=== PATIENT | male | born 1990 | race African-American/Black ===

== ENCOUNTER 2019-03-02 12:36 | Emergency (ER) | payer MEDICAID ==
[~2019-03-02] VITALS: Ht 177.8 cm; Wt 82.0 kg
[2019-03-02] MEDS ORDERED: DIAZEPAM 5 MG TABLET PO ONE (13:45)
[2019-03-02] MEDS ORDERED: HYDROCODONE/ACETAMINOPHEN 5/325MG TABLET PO ONE (13:45)
[2019-03-02] MEDS ORDERED: KETOROLAC 60MG/2ML VIAL IM ONE (13:45)
[2019-03-02 14:45] VITALS: BP 126/77
== END 2019-03-02 14:46 | disposition home or self-care (01) ==
LOC: ER 12:42
DX: G89.29 Other chronic pain (principal); M54.5 Low back pain; K21.9 Gastro-esophageal reflux disease without esophagitis; F12.10 Cannabis abuse, uncomplicated
CPT/HCPCS: 72100; 96372; 99283; J1885

== ENCOUNTER 2022-10-16 09:36 | Emergency (ER) | payer MEDICAID ==
[~2022-10-16] VITALS: Ht 182.9 cm; Wt 81.6 kg
[2022-10-16 09:40] VITALS: TEMP 98.7; O2SAT 100
[2022-10-16 10:13] LABS: BASOPHILS % 0.7 % (0.0-2.0); HEMATOCRIT. 41.7 % (42.0-52.0); HEMOGLOBIN. 13.9 g/dL (14.0-18.0); LYMPHOCYTES % 15.1 % (20.0-50.0); MEAN CORPUSCULAR HEMOGLOBIN 29.4 pg (28.0-32.0); MEAN CORPUSCULAR HGB CONC 33.4 g/dL (31.0-37.0); MEAN CORPUSCULAR VOLUME 88.1 fL (80.0-94.0); MONOCYTES % 9.8 % (2.0-8.0); NEUTROPHILS % 74.4 % (40.0-76.0); RED BLOOD CELL COUNT 4.73 mill/uL (4.7-6.1); RED CELL DISTRIBUTION WIDTH 13.9 % (11.6-14.6); WHITE BLOOD COUNT 12.8 x1000/uL (4.5-11.0)
[2022-10-16] MEDS ORDERED: MORPHINE SULFATE 4 MG/ML CPJ (NOT FOR IM USE) IV STA (10:14)
[2022-10-16] MEDS ORDERED: ONDANSETRON HCL 4MG/2ML INJ IV STA (10:14)
[2022-10-16] MEDS ORDERED: SODIUM CHLORIDE 0.9% 1,000 ML IV ONE (10:15)
[2022-10-16 10:20] LABS: DIFFERENTIAL COMMENT 1
[2022-10-16 10:25] LABS: CHLORIDE 108 mEq/L (98-107); INDEX HEMOLYSI 1 (1-3); INDEX ICTERIC 1 (1-4); INDEX LIPEMIC 1 (1-3); POTASSIUM 3.8 mEq/L (3.5-5.1); SODIUM 137 mEq/L (136-145)
[2022-10-16 10:35] LABS: ALANINE AMINOTRANSFERASE 41 IU/L (13-61); ALBUMIN 4.7 g/dL (3.4-5.0); ASPARTATE AMINOTRANSFERASE 23 IU/L (15-37); CALCIUM 9.5 mg/dL (8.5-10.1); CARBON DIOXIDE 17 mEq/L (21-32); CREATININE 0.8 mg/dL (0.6-1.3); GLUCOSE 119 mg/dL (70-105); UREA NITROGEN BLOOD 15 mg/dL (7-21)
[2022-10-16 10:47] LABS: PLATELET 333 x1000/uL (130-400)
[2022-10-16] MEDS ORDERED: HALOPERIDOL LACTATE 5MG/ML VIAL IM ONE (12:30)
[2022-10-16] MEDS ORDERED: ONDANSETRON HCL 4MG/2ML INJ IV NR (13:00)
[2022-10-16] MEDS ORDERED: MORPHINE SULFATE 4 MG/ML CPJ (NOT FOR IM USE) IV NR (13:00)
[2022-10-16 13:20] VITALS: BP 111/71; PULSE 52; RESP 16
[2022-10-16] MEDS ORDERED: ONDA4TAB50 MT (15:39)
== END 2022-10-16 15:39 | disposition home or self-care (01) ==
LOC: ER 09:43
DX: R10.9 Unspecified abdominal pain (principal); K21.9 Gastro-esophageal reflux disease without esophagitis; F12.90 Cannabis use, unspecified, uncomplicated
CPT/HCPCS: 80053; 83690; 85025; 36415; 74176; 96361; 96374; 96375; 99285; J1630; J2405; J2270; J7030; Z7610 ×2

== ENCOUNTER 2024-05-16 22:14 | Emergency (ER) | payer MEDICAID, OTHER ==
[~2024-05-16] VITALS: Ht 182.9 cm; Wt 84.0 kg
[~2024-05-16 22:14] MED LIST: ONDA4TAB50 MT
[2024-05-16 22:38] VITALS: O2SAT 98
[2024-05-16 22:57] LABS: BASOPHILS % 1.6 % (0.0-2.0); HEMATOCRIT. 42.9 % (42.0-52.0); HEMOGLOBIN. 14.3 g/dL (14.0-18.0); LYMPHOCYTES % 34.4 % (20.0-50.0); MEAN CORPUSCULAR HEMOGLOBIN 29.6 pg (28.0-32.0); MEAN CORPUSCULAR HGB CONC 33.4 g/dL (31.0-37.0); MEAN CORPUSCULAR VOLUME 88.6 fL (80.0-94.0); MEAN PLATELET VOLUME 8.3 fl (7.4-10.4); MONOCYTES % 13.9 % (2.0-8.0); NEUTROPHILS % 48.1 % (40.0-76.0); PLATELET 270 x1000/uL (130-400); RED BLOOD CELL COUNT 4.83 mill/uL (4.7-6.1); RED CELL DISTRIBUTION WIDTH 14.4 % (11.6-14.6); WHITE BLOOD COUNT 11.7 x1000/uL (4.5-11.0)
[2024-05-16 23:04] LABS: CHLORIDE 102 mEq/L (98-107); POTASSIUM 3.3 mEq/L (3.5-5.1)
[2024-05-16 23:05] LABS: CARBON DIOXIDE 26 mEq/L (21-32); SODIUM 139 mEq/L (136-145)
[2024-05-16 23:06] LABS: CALCIUM 9.6 mg/dL (8.7-10.4)
[2024-05-16 23:10] LABS: CREATININE 1.1 mg/dL (0.6-1.3); GLUCOSE 106 mg/dL (70-105)
[2024-05-16 23:11] LABS: UREA NITROGEN BLOOD 18 mg/dL (9-23)
[2024-05-16 23:12] LABS: ALANINE AMINOTRANSFERASE 69 IU/L (10-49); ALBUMIN 4.6 g/dL (3.2-4.8); ASPARTATE AMINOTRANSFERASE 33 IU/L (<34)
[2024-05-16 23:13] LABS: BILIRUBIN DIRECT 0.3 mg/dL (<=3.0); BILIRUBIN TOTAL 1.3 mg/dL (0.1-1.0)
[2024-05-17] MEDS: ACETAMINOPHEN 325MG TABLET PO ONE (00:30)
[2024-05-17] MEDS: KETOROLAC 15MG/ML VIAL IM ONE (00:30)
[2024-05-17] MEDS: ONDANSETRON 4MG ODT PO ONE (00:30)
[2024-05-17] MEDS ORDERED: ONDA-239 PO (00:51)
[2024-05-17 01:30] VITALS: BP 124/86; PULSE 69; RESP 18; TEMP 36.8; O2SAT 100
== END 2024-05-17 01:33 | disposition home or self-care (01) ==
LOC: ER 22:14
DX: K52.9 Noninfective gastroenteritis and colitis, unspecified (principal); F12.10 Cannabis abuse, uncomplicated; Z98.890 Other specified postprocedural states
CPT/HCPCS: 80076; 80048; 83690; 85025; 36415; 76705; 99285; 96372; Q0162; J1885; Z7610